=== PATIENT | female | born 1995 | race Caucasian/White ===

== ENCOUNTER 2017-03-18 08:01 | Day surgery (SDC) | payer OTHER ==
[~2017-03-18 08:01] MED LIST: CEFAZOLIN SODIUM 2 GRAM PREMIX 100 ML IV ONE; CEFAZOLIN SODIUM 2 GRAM PREMIX 100 ML IV PRN; IV START KIT ONE; LACTATED RINGERS 1,000 ML ONE
[2017-03-18] MEDS ORDERED: MIDAZOLAM HCL 1 MG/ML 2ML VIAL ONE (08:43)
[2017-03-18] MEDS ORDERED: FENTANYL 100 MCG/2 ML VIAL ONE ×2 (08:43→10:18)
[2017-03-18] MEDS ORDERED: BUPIVACAINE 0.25% EPI PF 30 ML VIAL ONE (08:48)
[2017-03-18] MEDS ORDERED: MORPHINE SULFATE (DURAMORPH) 1 MG/ML 10ML AMP ONE (09:10)
[2017-03-18] MEDS ORDERED: LIDOCAINE 2% (PRES FREE) 5 ML VIAL ONE (09:28)
[2017-03-18] MEDS ORDERED: ONDANSETRON 4 MG/2ML 2 ML VIAL ONE (09:28)
[2017-03-18] MEDS ORDERED: PROPOFOL 20 ML IV ONE (09:28)
[2017-03-18] MEDS ORDERED: DIPHENHYDRAMINE HCL 50 MG/1 ML VIAL ONE (09:28)
[2017-03-18] MEDS ORDERED: KETOROLAC TROMETHAMINE 30 MG/ML 1 ML VIAL ONE (09:28)
[2017-03-18] MEDS ORDERED: DEXAMETHASONE SOD PHOS 4 MG/1 ML VIAL ONE (09:29)
[2017-03-18] MEDS ORDERED: ONDANSETRON 4 MG/2ML 2 ML VIAL IV PRN (09:53)
[2017-03-18] MEDS ORDERED: ATROPINE SULFATE 0.4 MG/1 ML VIAL IV PRN (09:53)
[2017-03-18] MEDS ORDERED: HYDROMORPHONE HCL 1 MG/ML SYRINGE IV PRN (09:53)
[2017-03-18] MEDS ORDERED: PROMETHAZINE HCL 25 MG/ML VIAL IM PRN (09:53)
[2017-03-18] MEDS ORDERED: NALOXONE HCL 0.4 MG/ML VIAL IV PRN (09:53)
[2017-03-18] MEDS ORDERED: FENTANYL 100 MCG/2 ML VIAL IV PRN (09:53)
[2017-03-18] MEDS ORDERED: LACTATED RINGERS 1,000 ML IV SCH (10:00)
[2017-03-18] MEDS ORDERED: KETOROLAC TROMETHAMINE 30 MG/ML 1 ML VIAL IV PRN (10:39)
[2017-03-18] MEDS ORDERED: ACETAMINOPHEN 325 MG TABLET PO PRN (10:39)
[2017-03-18] MEDS ORDERED: SODIUM CHLORIDE 0.9% 1,000 ML IV SCH (10:39)
[2017-03-18] MEDS ORDERED: HYDROCODONE/ACETAMINOPHEN 5/325MG TABLET PO PRN (10:39)
[2017-03-18] MEDS ORDERED: HYDROCODONE/ACETAMINOPHEN 5/325MG TABLET ONE (10:45)
--- NOTE | 2017-03-18 11:13 | HP ---
DATE OF CLINIC: 03/05/2017 KENAN ROTHMAN : 1995 PLANNED PROCEDURE: Right Knee Arthroscopic Medial Meniscectomy DATE of SURGERY: March 18, 2017 SURGEON: Ant Bonner M.D. PCP: [facility] HISTORY OF PRESENT ILLNESS Kenan Rothman is a 21 year old female. * Medication list reviewed with patient allergy list reviewed with patient. Patient is a patient of Dr. Bonner's here today for a preoperative H&P for upcoming knee arthroscopy. Patient is s/p ACL reconstruction x3 recently. Unfortunately, in October she fell twisting her knee. She has had difficulty since that time with feelings of swelling. She has had the sensation of catching and pain in the medial aspect of her knee since. Patient's last consultation with Dr. Bonner is as follows: 21-year-old female who is s/p a right knee ACL revision on 07/29/16. She was last seen for this 09/19/16 and doing well at that time. Unfortunately, in October she fell, twisting her knee with medial discomfort. She has had no feelings of instability, but has had discomfort and some mild swelling. She presents for evaluation of this. No radiating symptoms. CURRENT MEDICATION * None PAST MEDICAL/SURGICAL HISTORY Reported: Surgical / Procedural: Arthroscopy Right knee ACL reconstruction 12/15/12, Right knee scope/ACL revision 05/23/[address] Bonner, Right knee scope/ACL revision/MM/debridement done 07/29/[address] Bonner. No known medical issues. SOCIAL HISTORY Behavioral: Caffeine use and non-smoker never smoked. Smoking status: Never smoker. Work: Student. ALLERGIES * No Known Allergies REVIEW OF SYSTEMS Systemic: No fever and no recent weight change. Head: No head symptoms. Cardiovascular: No cardiovascular symptoms. Pulmonary: No pulmonary symptoms. Gastrointestinal: No gastrointestinal symptoms. Psychological: No psychological symptoms. Skin: No skin lesions and no rash. PHYSICAL FINDINGS * Vitals taken 03/05/2017 08:58 am BP-Sitting R 121/53 mmHg BP Cuff Size Regular Pulse Rate-Sitting 77 bpm Temp-Oral 98.2 F Height 64.25 in Weight 150 lbs 12.8 oz Body Mass Index 25.7 kg/m2 BMI Percentile 81 % Body Surface Area 1.74 m2 Pain Level 1 Ears, Nose, Throat: * ENT: normal. Lungs: * Clear to auscultation No wheezing or rhonchi. Cardiovascular: Heart Rate and Rhythm: * Normal RRR without murmur. Abdomen: * Normal Soft NT. Neurological: Motor: * Dominant Hand = Right Hand. Incision is benign, well-healed. She does have a trace effusion, no focal swelling. Motion is full extension to 130 degrees of flexion, well-tolerated. She is tender reproducibly over the medial joint-line and has pain with Brynn's. She has a firm endpoint on Jag's and a symmetric drawer. I am unable to appreciate a pivot, although she does have some guarding. Her patella tracks well, NT in the medial retinaculum, NT over the lateral joint-liine, NT in the anteromedial proximal tibia. Calf is soft and NT. Distal light touch sensation and motor function is intact and symmetric. Pulses are palpable. She ambulates with a normal, symmetric, heel-to-toe gait. TESTS MRI of her knee is reviewed with her and her mother at length today. They show an ACL graft that appears to be intact, but she does have a signal line through the posterior horn of the medial meniscus consistent with a tear. ASSESSMENT S/P revision ACL reconstruction with a fall approximately 3 months postoperatively and some increased pain medially. This is most consistent with possible compromise of her medial meniscus repair. I believe that her ACL graft is likely intact by exam as well as history. Right knee medial meniscus tear. THERAPY * Patient not eligible for fall risk assessment. PLAN * Arthroscopy of the knee with medial meniscectomy -Right Discussed with patient in detail the limitations, expectations as well as risks and possible complications of surgery including, but not limited to wound problems or infection, neurovascular injury, continued knee pain or dysfunction including the possibility of failure over time that may require additional operative or non-operative treatment. Patient also realizes the perioperative risks including risks associated with anesthesia and would like to proceed. A full PAR conference was held, questions and concerns addressed and informed consent was obtained. Patient will be sent from my office for completion of the preoperative workup. CARE TEAM Need To Load Need to Load Ph.D.Medical Genetics CC: Vickie MAHANR/[email or web address]
--- NOTE | 2017-03-19 09:51 | OP ---
KENAN WYNN [id number] : 1995 DATE OF SURGERY: March 18, 2017 PREOPERATIVE DIAGNOSIS: S/P previous left knee ACL reconstruction and medial meniscal repair, rule out medial meniscal tear. POSTOPERATIVE DIAGNOSIS: Left knee retained hardware/foreign body with healing, intact medial meniscus and intact ACL. PROCEDURE: Left knee arthroscopy with removal of foreign body/retained meniscal anchor. SURGEON: Ant Bonner M.D. ESTIMATED BLOOD LOSS: Minimal ANESTHESIA: General per Lisa FLUIDS: IV replacement per anesthesia. TOURNIQUET TIME: Zero DRAINS: None COMPLICATIONS: None INDICATION: Patient is a 21-year-old female. She has had a prior ACL revision reconstruction as well as medial meniscal repair last August. Unfortunately, she fell down the stairs in October with increased medial pain. This has been intermittently problematic for her. MRI is suggestive of medial meniscal tear. Recommendation to proceed with arthroscopy as noted above. They have failed to improve with traditional nonoperative treatments and would like to proceed with elective arthroscopic evaluation and treatment. PAR conference was held, questions and concerns were addressed, and informed consent was obtained. For additional details, please refer to the previously dictated preoperative History and Physical Exam. OPERATIVE FINDINGS: A complete diagnostic knee arthroscopy was performed with the following findings: The suprapatellar pouch was clean. Patellofemoral joint was normal. Medial and lateral gutters were clean. Medial compartment showed displacement of a meniscal anchor on the undersurface of the posterior horn of the meniscus with a broken suture. The other stitch in the meniscus appeared intact. There was scuffing on the superior surface of the meniscus. Articular surfaces were normal. Notch showed intact ACL graft, quite robust. The lateral compartment was normal. PROCEDURAL DESCRIPTION: Patient was taken to the operating room. General anesthesia was induced and a laryngeal masked airway was placed. The lower extremity was prepped and draped out in the usual sterile fashion. Examination under anesthesia was normal, specifically negative pivot and negative Jag. After sterile prep and drape the knee was injected with 45 mL of 0.25% Marcaine with epinephrine. A medial suprapatellar and lateral peripatellar portal were initially established followed by a medial peripatellar portal under direct intraarticular visualization. A standard 4.0 mm 30 degree arthroscope was used. An arthroscopic pump system was utilized. A photographic record was made. A complete diagnostic knee arthroscopy was then performed with findings as discussed above. We turned our attention initially to the medial compartment. I used a FiberWire cutter and grasper to remove the portion of the meniscal anchor that was loose and displaced as well as the torn suture. I then carefully probed the meniscus. Although there was scuffing superiorly, there was no full thickness tearing and there was no instability. I felt in this situation in such a young individual and evidence of some interval healing with an obvious reason for her symptoms being that as described above, that there was no indication for a partial meniscectomy or any other more aggressive treatment to the meniscus at this point. Satisfied, after copious irrigation we removed the cannulas and closed the portal sites with interrupted 4-0 Nylon. The knee was injected with an additional 15 mL of 0.25% Marcaine with epinephrine plus 5mg of intraarticular Morphine. A sterile compression wrap was applied. The patient was then awakened, extubated, transferred to their hospital bed and sent to post anesthesia recovery in stable condition. The patient tolerated the procedure well. Sponge, instrument and needle count were correct. SHELBY/mrw CC: [place] [facility]
== END 2017-03-18 12:08 | disposition home or self-care (01) ==
LOC: SDC 08:01
PROVIDERS: ATTEND Orthopaedic Surgery
DX: T81.32XA Disruption of internal operation (surgical) wound, not elsewhere classified, initial encounter (principal)
CPT/HCPCS: 29874; J1200; J3010 ×2; J1100; J2274; J1885; J2250; J2405; J7120; A9270; J0690